=== PATIENT | female | born 1990 | race Caucasian/White ===

== ENCOUNTER 2016-10-09 23:21 | Emergency (ER) | payer SELFPAY ==
[~2016-10-09] VITALS: Ht 157.5 cm; Wt 100.0 kg
[2016-10-10] MEDS ORDERED: ACETAMINOPHEN 500MG TABLET PO ONE (00:30)
[2016-10-10 03:10] VITALS: BP 116/72
== END 2016-10-10 03:13 | disposition home or self-care (01) ==
LOC: ER 23:21
DX: S52.532A Colles' fracture of left radius, initial encounter for closed fracture (principal); S93.401A Sprain of unspecified ligament of right ankle, initial encounter; S90.31XA Contusion of right foot, initial encounter; M25.532 Pain in left wrist; V43.52XA Car driver injured in collision with other type car in traffic accident, initial encounter; Y93.89 Activity, other specified; Y92.414 Local residential or business street as the place of occurrence of the external cause; F17.210 Nicotine dependence, cigarettes, uncomplicated; Z88.8 Allergy status to other drugs, medicaments and biological substances
CPT/HCPCS: 73090; 73130; 73610; 73630; 81025; 99284